=== PATIENT | female | born 1970 | race Caucasian/White ===

== ENCOUNTER 2016-09-04 16:12 | Emergency (ER) | payer OTHER ==
[~2016-09-04] VITALS: Ht 149.9 cm; Wt 52.3 kg
[2016-09-04 16:39] LABS: BASOPHILS # (AUTO) 0.09 K/uL (0.00-0.20); BASOPHILS % (AUTO) 1.5 % (0.0-2.0); EOSINOPHILS # (AUTO) 0.02 K/uL (0.00-0.70); HEMATOCRIT 42.1 % (36-46); HEMOGLOBIN 13.7 g/dL (12.0-16.0); LYMPHOCYTES # (AUTO) 1.7 K/uL (1.0-4.8); LYMPHOCYTES % (AUTO) 29.4 % (22.0-44.0); MEAN CORPUSCULAR HGB CONC 32.6 G/dL (31.0-37.0); MEAN CORPUSCULAR VOLUME 89 fL (80-100); MONOCYTES # (AUTO) 0.3 K/uL (0.1-1.0); MONOCYTES % (AUTO) 5.6 % (2.0-9.0); NEUTROPHILS # (AUTO) 3.6 K/uL (1.8-7.7); NEUTROPHILS % (AUTO) 63.1 % (40.0-70.0); PLATELET COUNT (AUTO) 384 K/uL (150-450); RED BLOOD CELL COUNT(AUTO) 4.73 MIL/uL (4.00-5.20); RED CELL DISTRIBUTION WIDTH 14.9 % (11.5-14.5); WHITE BLOOD COUNT (AUTO) 5.7 K/uL (4.5-11.0)
[2016-09-04 16:43] LABS: GLUCOSE,POINT OF CARE 256 MG/DL (70-110)
[2016-09-04 16:44] LABS: ALANINE AMINOTRANSFERASE 46 U/L (12-78); ALBUMIN 3.7 g/dL (3.4-5.0); ANION GAP 14 mmol/L (8-16); ASPARTATE AMINOTRANSFERASE 43 U/L (15-37); BILIRUBIN,TOTAL 0.3 mg/dL (0.1-1.0); CALCIUM, TOTAL 7.9 mg/dL (8.8-10.5); CARBON DIOXIDE 23 mmol/L (22-29); CHLORIDE 105 mmol/L (98-107); GLOMERULAR FILTR. RATE CALC > 60 mL/min (>60); SODIUM SERUM 142 mmol/L (136-145); TOTAL PROTEIN, SERUM 7.5 g/dL (6.4-8.2); UREA NITROGEN, BLOOD 3 mg/dL (7-18)
[2016-09-04 16:45] LABS: POTASSIUM 2.8 mmol/L (3.5-5.1)
[2016-09-04] MEDS ORDERED: LORazepam 2 MG TABLET ONE (16:51)
[2016-09-04] MEDS ORDERED: LORazepam 2 MG TABLET PO ONE (17:00)
[2016-09-04] MEDS ORDERED: POTASSIUM CHLORIDE 20 MEQ ER TABLET PO ONE ×2 (17:00→21:00)
[2016-09-04 18:22] LABS: GLUCOSE,POINT OF CARE 197 MG/DL (70-110)
[2016-09-04 22:44] VITALS: BP 112/65
== END 2016-09-04 22:47 | disposition home or self-care (01) ==
LOC: EMS 16:14
DX: F10.129 Alcohol abuse with intoxication, unspecified (principal); R45.851 Suicidal ideations; E87.6 Hypokalemia; E11.65 Type 2 diabetes mellitus with hyperglycemia; Y90.8 Blood alcohol level of 240 mg/100 ml or more
CPT/HCPCS: 36415; 80053; 80307; 82962; 85025; 99285; G0480

== ENCOUNTER 2017-05-10 17:07 | Emergency (ER) | payer OTHER ==
[~2017-05-10] VITALS: Ht 154.9 cm; Wt 68.2 kg
[2017-05-10 17:37] VITALS: BP 119/78
[2017-05-10 17:47] LABS: GLUCOSE,POINT OF CARE 250 MG/DL (70-110)
[2017-05-10] MEDS ORDERED: CYANOCOBALAMIN 1,000 MCG/ML VIAL IM ONE (18:00)
[2017-05-10] MEDS ORDERED: THIAMINE HCL 100 MG/ML 2ML VIAL IM ONE (18:00)
== END 2017-05-10 18:46 | disposition home or self-care (01) ==
LOC: EMS 17:08
DX: F10.239 Alcohol dependence with withdrawal, unspecified (principal)
CPT/HCPCS: 82962; 99285